=== PATIENT | female | born 1965 | race American Indian/Alaskan Native ===

== ENCOUNTER 2022-02-08 19:08 | Emergency (ER) | payer SELFPAY ==
[2022-02-08] MEDS ORDERED: IBUPROFEN 800 MG TAB PO ONE (19:42)
--- NOTE | 2022-02-08 22:05 | Emergency Department Report ---
ED General Adult HPI - General Chief complaint: Eye Problems Stated complaint: SUPER GLUE IN LEFT EYE Time Seen by Provider: 02/08/22 21:40 Source: patient Mode of arrival: Ambulatory Limitations: No Limitations - History of Present Illness Initial comments: Patient 56-year-old female who presents for left eye pain burning and stinging after accidentally getting fingernail glue to the left eye. Patient did irrigate immediately. Symptoms include burning stinging and blurred vision. Patient denies other complaint. Incident happened approximately 2 hours ago. Severity scale (0 -10): 7 - Related Data Previous Rx's Medication Instructions Recorded Last Taken Type Ibuprofen [Motrin 800 MG tab] 800 mg PO Q8HR PRN #30 tablet 02/08/22 Unknown Rx Ketotifen Fumarate [Zaditor] 2 drop OP BID PRN #5 ml 02/08/22 Unknown Rx Polymyxin B Sulf/Trimethoprim 2 drops OP Q3H #10 ml 02/08/22 Unknown Rx [Polytrim Eye Drops] Allergies Allergy/AdvReac Type Severity Reaction Status Date / Time No Known Allergies Allergy Verified 02/08/22 19:42 ED Review of Systems ROS: Stated complaint: SUPER GLUE IN LEFT EYE Other details as noted in HPI Constitutional: denies: chills, fever Eyes: eye pain, eye discharge (Clear), vision change (Blurry left) ENT: denies: ear pain, throat pain Respiratory: denies: cough, shortness of breath, wheezing Cardiovascular: denies: chest pain, palpitations Endocrine: no symptoms reported Gastrointestinal: denies: abdominal pain, nausea, diarrhea Genitourinary: denies: urgency, dysuria, discharge Musculoskeletal: denies: back pain, joint swelling, arthralgia Skin: denies: rash, lesions Neurological: denies: headache, weakness, paresthesias Psychiatric: denies: anxiety, depression Hematological/Lymphatic: denies: easy bleeding, easy bruising ED Past Medical Hx - Past Medical History Previous Medical History?: Yes Hx Hypertension: Yes Additional medical history: GRAVES DISEASE - Surgical History Past Surgical History?: No - Social History Smoking Status: Never Smoker Substance Use Type: None - Medications Home Medications: Home Medications Medication Instructions Recorded Confirmed Last Taken Type Ibuprofen [Motrin 800 MG tab] 800 mg PO Q8HR PRN #30 tablet 02/08/22 Unknown Rx Ketotifen Fumarate [Zaditor] 2 drop OP BID PRN #5 ml 02/08/22 Unknown Rx Polymyxin B Sulf/Trimethoprim 2 drops OP Q3H #10 ml 02/08/22 Unknown Rx [Polytrim Eye Drops] ED Physical Exam - General Limitations: No Limitations General appearance: alert, in no apparent distress - Head Head exam: Present: normocephalic, normal inspection - Eye Eye exam: Present: PERRL, EOMI, conjunctival injection. Absent: nystagmus Pupils: Present: normal accommodation - Expanded Eye Exam Expanded Pupils: Regular, Round: Bilateral Sclera/Conjunctival: Injection: Left Anterior chamber: Normal Inspection: Bilateral Posterior chamber: Deferred: Bilateral Visual acuity (R) = 20/: 30 Visual acuity (L) = 20/: 30 With correction: No - ENT ENT exam: Present: mucous membranes moist - Neck Neck exam: Present: normal inspection, full ROM. Absent: lymphadenopathy - Respiratory Respiratory exam: Present: normal lung sounds bilaterally. Absent: respiratory distress, wheezes - Cardiovascular Cardiovascular Exam: Present: regular rate, normal rhythm, normal heart sounds. Absent: systolic murmur, diastolic murmur, rubs, gallop - GI/Abdominal GI/Abdominal exam: Present: soft, normal bowel sounds. Absent: distended, tenderness - Rectal Rectal exam: Present: deferred - Extremities Exam Extremities exam: Present: normal inspection, full ROM, normal capillary refill - Back Exam Back exam: Present: normal inspection, full ROM. Absent: tenderness - Neurological Exam Neurological exam: Present: alert, oriented X3 - Psychiatric Psychiatric exam: Present: normal affect, normal mood - Skin Skin exam: Present: warm, dry, intact, normal color. Absent: rash ED Course Vital Signs 02/08/22 19:24 Temperature 99.1 F Pulse Rate 65 Respiratory 18 Rate Blood Pressure 181/91 O2 Sat by Pulse 100 Oximetry - Procedure Description Procedures done: Left eye exam PERRLA EOMI, conjunctival injection, anesthesia with tetracaine anesthesia is achieved. I irrigated with 20 cc sterile saline, eyelid inverted and swept. Repeat visual acuity 20/30 bilaterally. Pain is resolved. Vision is at baseline per patient patient given follow-up instructions including antibiotics, and follow-up with ophthalmology in a.m. Patient tolerated procedure with minimal distress. ED Medical Decision Making - Medical Decision Making Is conjunctivitis left eye, patient DC to home with prescriptions, follow-up with ophthalmology in a.m. He verbalized agreement and understanding with discharge plan. Patient DC'd home in stable condition at this time. Critical care attestation.: If time is entered above; I have spent that time in minutes in the direct care of this critically ill patient, excluding procedure time. ED Disposition Clinical Impression: Conjunctivitis Qualifiers: Conjunctivitis type: acute Acute conjunctivitis type: bacterial Laterality: left Qualified Code(s): H10.32 - Unspecified acute conjunctivitis, left eye Disposition: HOME / SELF CARE / HOMELESS Is pt being admited?: No Does the pt Need Aspirin: No Condition: Stable Instructions: How to Use Eye Drops and Eye Ointments Additional Instructions: Take medications as prescribed, follow-up with eye doctor tomorrow. Return to emergency department should symptoms worsen. Prescriptions: Ibuprofen [Motrin 800 MG tab] 800 mg PO Q8HR PRN #30 tablet PRN Reason: pain Polymyxin B Sulf/Trimethoprim [Polytrim Eye Drops] 2 drops OP Q3H #10 ml Ketotifen Fumarate [Zaditor] 2 drop OP BID PRN #5 ml PRN Reason: Itching Referrals: OFELIA WAY MD [Staff Physician] - 3-5 Days Forms: Work/School Release Form(ED) Time of Disposition: 22:08
[2022-02-08 22:46] VITALS: BP 163/86
[2022-02-08] MEDS ORDERED: NEOMY 3.5 MG/BACIT 400 UNITS/POLY B 10,000 UNITS/GM 3.5 GM OPHTH OINT OU STA (22:56)
== END 2022-02-08 23:13 | disposition home or self-care (01) ==
LOC: ED 19:08
DX: H10.32 Unspecified acute conjunctivitis, left eye (principal); I10 Essential (primary) hypertension
CPT/HCPCS: 99284